=== PATIENT | female | born 1980 | race Caucasian/White ===

== ENCOUNTER 2017-02-02 20:21 | Emergency (ER) | payer OTHER ==
[~2017-02-02] VITALS: Ht 167.6 cm; Wt 76.2 kg
[~2017-02-02 20:21] MED LIST: AMIT10TA25 PO; IBUP-974 PO
[2017-02-02 20:33] VITALS: BP 117/76
[2017-02-02] MEDS ORDERED: KETOROLAC 60 MG/2 ML VIAL IM ONE (22:50)
[2017-02-02 23:09] VITALS: BP 112/72
== END 2017-02-02 23:09 | disposition home or self-care (01) ==
LOC: MED 20:21
DX: M54.12 Radiculopathy, cervical region (principal); M54.41 Lumbago with sciatica, right side; M79.604 Pain in right leg; G43.909 Migraine, unspecified, not intractable, without status migrainosus; Z88.5 Allergy status to narcotic agent
CPT/HCPCS: 96372; 99283; J1885

== ENCOUNTER 2017-05-14 13:29 | Emergency (ER) | payer OTHER ==
[~2017-05-14] VITALS: Ht 170.2 cm; Wt 73.0 kg
[2017-05-14 14:00] VITALS: BP 100/67
--- NOTE | 2017-05-14 16:45 | NUR ---
PATIENT PRESENTS TO ED WITH c/o generalized bodyaches, fever/chills, headaches, dry cough, malaise;DENIES N/V/D; SKIN IS PINK/WARM/DRY; AAOX4 WITH EVEN AND STEADY GAIT; LUNGS CLEAR BL; HR EVEN AND REGULAR; PATIENT STATES PAIN OF 7/10 AT THIS TIME; PATIENT POSITIONED FOR COMFORT; HOB ELEVATED; BEDRAILS UP X2; BED DOWN. ALL MONITORS IN PLACED.
[2017-05-14] MEDS ORDERED: KETOROLAC 60 MG/2 ML VIAL IM ONE (16:50)
[2017-05-14 17:25] VITALS: BP 114/74
== END 2017-05-14 17:25 | disposition home or self-care (01) ==
LOC: MED 13:29
DX: J11.1 Influenza due to unidentified influenza virus with other respiratory manifestations (principal); F17.210 Nicotine dependence, cigarettes, uncomplicated; Z88.6 Allergy status to analgesic agent
CPT/HCPCS: 71020; 81002; 81025; 96372; 99284; J1885